=== PATIENT | female | born 1990 | race Caucasian/White ===

== ENCOUNTER 2023-07-19 21:17 | Emergency (ER) | payer OTHER ==
[~2023-07-19] VITALS: Ht 167.6 cm; Wt 69.9 kg
[2023-07-19] MEDS ORDERED: LEVOTHYROXINE25 MCG PO (21:48)
== END 2023-07-19 22:29 | disposition home or self-care (01) ==
LOC: ER 21:17
DX: N61.0 Mastitis without abscess (principal); Z91.048 Other nonmedicinal substance allergy status